=== PATIENT | female | born 1950 | race Two or more races ===

== ENCOUNTER 2017-09-29 16:08 | Inpatient (IN) | payer OTHER, MEDICARE ==
[~2017-09-29] VITALS: Ht 160 cm; Wt 89.8 kg
--- NOTE | 2017-09-29 16:30 | NUR ---
AAOX3, PATIENT CAME FROM HOME C/O COUGH WITH CONGESTION AND FEVER SINCE YESTERDAY. RR IS EVEN AND UNLABORED WITH NAD NOTED. PLACED ON MONITOR. AWAITING MD FOR EVAL.
[2017-09-29] MEDS ORDERED: ACETAMINOPHEN ES 500 MG TABLET ONE (16:54)
[2017-09-29 16:58] LABS: BASOPHILS # (AUTO) 0.1 /CMM (0.0-0.2); BASOPHILS % (AUTO) 1.8 % (0.0-2.0); EOSINOPHILS % (AUTO) 0.5 % (0.0-6.0); HEMATOCRIT 35 % (33-45); HEMOGLOBIN 12.1 g/dL (11.5-14.8); LYMPHOCYTES # (AUTO) 1.5 /CMM (0.8-4.8); LYMPHOCYTES % (AUTO) 25.9 % (20.0-44.0); MEAN CORPUSCULAR HGB CONC 34 g/dl (31.0-36.0); MEAN CORPUSCULAR VOLUME 88 fL (82-100); MONOCYTES # (AUTO) 0.5 /CMM (0.1-1.30); MONOCYTES % (AUTO) 8.5 % (2.0-12.0); NEUTROPHILS # (AUTO) 3.6 /CMM (1.8-8.9); NEUTROPHILS % (AUTO) 63.3 % (43.0-81.0); PLATELET COUNT (AUTO) 211 /CMM (150-450); RED BLOOD CELL COUNT(AUTO) 3.99 MIL/uL (4.0-5.2); WHITE BLOOD COUNT (AUTO) 5.7 K/uL (4.3-11.0)
--- NOTE | 2017-09-29 16:58 | NUR ---
CXR AT BS
[2017-09-29] MEDS ORDERED: PIPERACILLIN /TAZOBACTAM 3.375 G in IV D5W 50 ML IV ONE (17:00)
[2017-09-29] MEDS ORDERED: ACETAMINOPHEN ES 500 MG TABLET PO ONE (17:00)
[2017-09-29 17:11] LABS: CALCIUM, SERUM 8.3 mg/dL (8.5-10.1); CARBON DIOXIDE 32 mmol/L (21-32); CHLORIDE 101 mmol/L (98-107); CREATININE 0.7 mg/dL (0.6-1.3); GLUCOSE 167 mg/dL (74-106); POTASSIUM 3.3 mmol/L (3.5-5.1); SODIUM SERUM 137 mmol/L (136-145); UREA NITROGEN, BLOOD 11 mg/dL (7-18)
[2017-09-29 17:18] LABS: TROPONIN I < 0.017 ng/mL (0.00-0.056)
[2017-09-29 17:19] LABS: INR 0.99 (0.85-1.15)
[2017-09-29 17:23] LABS: APPEARANCE,URINE Clear (CLEAR); BILIRUBIN,URINE Negative (NEGATIVE); BLOOD, URINE Moderate Ery/uL (NEGATIVE); COLOR,URINE Yellow (YELLOW); KETONES,URINE Negative (NEGATIVE); LEUKOCYTE ESTERASE ,URINE Trace (NEGATIVE); NITRITE, URINE Negative (NEGATIVE); PROTEIN,URINE 30 mg/dl (NEGATIVE); UGLUCOSE Negative (NEGATIVE); UROBILINOGEN,URINE 0.2 EU/dL (0.2)
[2017-09-29 17:24] LABS: ALANINE AMINOTRANSFERASE 29 U/L (12-78); ALBUMIN 2.5 g/dL (3.4-5.0); ALKALINE PHOSPHATASE 64 U/L (46-116); ASPARTATE AMINOTRANSFERASE 28 U/L (15-37); B-TYPE NATRIURETIC PEPTIDE 369 PG/ML (0-125); BILIRUBIN,DIRECT 0.1 mg/dL (0.0-0.2); BILIRUBIN,TOTAL 0.3 mg/dL (0.2-1.0); TOTAL PROTEIN, SERUM 7.5 g/dL (6.4-8.2)
[2017-09-29] MEDS ORDERED: LEVOFLOXACIN 750 MG /D5W 150ML 150 ML IV ONE ×2 (17:30→17:51)
[2017-09-29 17:39] LABS: BACTERIA,URINE Few /HPF (None Seen); SQUAMOUS EPITHELIAL CELL,UR Few /HPF (None Seen)
--- NOTE | 2017-09-29 17:48 | NUR ---
CALLED NURSING SUP. FOR TELE BED
[2017-09-29] MEDS ORDERED: DONE5TAB34 PO (17:54)
[2017-09-29] MEDS ORDERED: CITA10TA9 PO (17:54)
[2017-09-29] MEDS ORDERED: LEVO75TA7 PO (17:54)
[2017-09-29] MEDS ORDERED: AMLO5TAB7 PO (17:54)
[2017-09-29] MEDS ORDERED: VALS160T29 PO (17:54)
[2017-09-29] MEDS ORDERED: MONT10TA22 PO (17:54)
[2017-09-29] MEDS ORDERED: CELE-85 PO (17:54)
[2017-09-29] MEDS ORDERED: METF-440 PO (17:54)
[2017-09-29] MEDS ORDERED: ASPI-1152 PO (17:54)
[2017-09-29] MEDS ORDERED: ESOM40CA52 PO (17:54)
[2017-09-29] MEDS ORDERED: CHOL100044 PO (17:54)
[2017-09-29] MEDS ORDERED: ATOR10TA PO (17:54)
--- NOTE | 2017-09-29 17:57 | NUR ---
TELE 307-2
--- NOTE | 2017-09-29 18:06 | NUR ---
REPORT GIVEN TO AMAYA STONE FOR DOUGLAS TELE 307-2
[2017-09-29] MEDS ORDERED: INSULIN REGULAR, HUMAN 100 UNIT/ML 3 ML VIAL SQ PRN (19:00)
[2017-09-29] MEDS ORDERED: POTASSIUM CHLORIDE 20 MEQ TAB.PRT.SR PO ONE (19:00)
[2017-09-29] MEDS ORDERED: DEXTROSE 50%-WATER 50 ML DISP.SYRIN IV PRN (19:00)
--- NOTE | 2017-09-29 19:30 | NUR ---
ADMISSION NOTES: RECEIVED REPORT FROM BERTHA CONDE. PT IN BED, AWAKE, A/O X4, ON RA RESPIRATION EVEN AND UNLABORED, PT IS [place] SPEAKING ONLY, RN BERTHA TRANSLATE EVERYTHING FOR THE PT, PT ADMITTED FOR UTI PNA, PT IV ACCESS NOTED TO BE INFILTRATED, IV ATB LEVOFLOXACIN, WILL INSERT A NEW ONE. ORIENTED PT TO UNIT POLICY AND HOURLY ROUNDING. ADMISSION ASSESSMENT/INTERVIEW DONE WITH BERTHA CONDE AT BED SIDE FOR TRANSLATE. PT ALSO REFUSING FOR INSULIN SHE STATED IN [place] THAT SHE DOESNT NEED IT AND ONLY TAKES METFORMIN IN THE MORNING, EDUCATION PROVIDED TO THE PT. SKIN ASSESSMENT PERFORMED, NO SACRAL REDNESS NOTED, PT IS AMBULATORY AND LIVES ALONE. TELE MONITORING ON, ON SINUS RHYTHM HR 72, DENIES ANY PAIN AT THIS TIME. SAFETY PRECAUTIONS FOR FALL INITIATED CALL LIGHT IN REACH, WILL CONTINUA TO MONITOR
--- NOTE | 2017-09-29 19:40 | NUR ---
SKIN ASSESSMENT: SKIN ASSESSMENT PERFORMED, NO SACRAL REDNESS NOTED, HOWEVER THERE IS SEEMINGLY "GENERALIZED PRURITUS WITH SCABS ALL OVER THE BODY MAINLY ON BILATERAL LEGS AND ARMS, TOOK PICTURES AND ATTACHED TO CHART, ID AND WOUND CONSULT WILL BE OBTAIN
[2017-09-29 20:00] VITALS: BP 135/85
--- NOTE | 2017-09-29 20:00 | NUR ---
RN NOTES: STARTED NEW IV ACCESS ON LEFT HAND G 22, CONNECTED BACK TO IV LEVOFLOXACIN. ALSO CHECKED PT'S BLOOD SUGAR 176, REFUSING FOR INSULIN EDUCATION PROVIDED TO THE PT, PT'S BROTHER AT BED SIDE. SNACK PROVIDED TO THE PT.
--- NOTE | 2017-09-29 20:30 | NUR ---
REFUSAL FOR OXYGEN: PT REFUSING OXYGEN NOT COMFORTABLE WITH IT, 925 on ra
[2017-09-29] MEDS: BLOOD SUGAR DIAGNOSTIC 1 EACH STRIP VI SCH (20:31)
[2017-09-29] MEDS: ALBUTEROL FS 2.5 MG/3 ML VIAL.NEB NEB PRN (20:56)
[2017-09-29] MEDS: CEFTRIAXONE 1 G in IV D5W 50 ML IV SCH (21:10)
[2017-09-29 21:15] VITALS: BP 140/75
[2017-09-29] MEDS: AZITHROMYCIN 500 MG in IV D5W 250 ML IV SCH (22:13)
[2017-09-30] VITALS (7 sets, daily range): BP systolic 110–153; BP diastolic 62–85
--- NOTE | 2017-09-30 01:51 | NUR ---
RN NOTES: PT C/O GENERALIZED ITCHING ALSO STATED HER CHEST IS ITCHING FROM LEADS FROM TELE MONITORING, PT REMOVED TELE BOX AND LEADS, RELAYED TO MANAGER FRENCH, PT REQUESTING FOR BENADRYL, CONTACTED PSYCHIATRIC SURGICAL GARMENT FITTER, STATED OKAY TO GIVE BENADRYL 25MG PO CAP Q6HRS PRN, ALSO NOTIFIED OF PT'S REFUSAL FOR HEART MONITORING
--- NOTE | 2017-09-30 01:55 | NUR ---
REFUSAL FOR HEART/TELE MONITORING: MD MADE AWARE OF PT'S REFUSAL FOR TELE MONITORING, ALSO DOLL SURGEON MADE AWARE, PER DOLL SURGEON TO KEEP TELE ON STANDBY
[2017-09-30] MEDS: diphenhydrAMINE HCL 25 MG CAPSULE PO PRN ×3 (02:13→21:32)
--- NOTE | 2017-09-30 02:13 | NUR ---
PRN BENADRYL: PT C/O GENERALIZED ITCHING, PRN BENADRYL 25MG CAP ADMINISTERED AT THIS TIME
[2017-09-30] MEDS: BLOOD SUGAR DIAGNOSTIC 1 EACH STRIP VI SCH ×4 (06:24→21:31)
[2017-09-30] MEDS: *INSULIN REGULAR(HUMULIN R)HUM 100 UNIT/ML VIAL SQ PRN ×2 (06:25→21:44)
--- NOTE | 2017-09-30 06:25 | NUR ---
ACCUCHECK 148: BLOOD SUGAR 148, PT REFUSED INSULIN, EDUCATION PROVIDED TO THE PT.
--- NOTE | 2017-09-30 06:51 | NUR ---
RN CLOSING NOTES: PT IN BED, AWAKE, REMAINS ON RA PT REFUSING FOR OXYGEN, STABLE ON RA, IV ACCESS REMAINS PATENT AND FLUSHING WELL, ON HL. VS REMAINS STABLE THROUGHOUT THE SHIFT, PT REMAINS TO REFUSED FOR TELE MONITORING. EDUCATION PROVIDED TO THE PT, MD AWARE, STAIN REMOVER AWARE. FOR WOUND CARE CONSULT TODAY. VS REMAINS STABLE, NEEDS ATTENDED. SAFETY PRECAUTIONS FOR FALL REMAINS ENGAGED, CALL LIGHT IN REACH, WILL ENDORSE TO DAY RN FOR DOUGLAS.
--- NOTE | 2017-09-30 07:10 | NUR ---
MSRN OPENING NOTES. PT RECEIVED A&0X3, BELARUSIAN SPEAKING, WORLD RENOWNED CHEF AND RESTAURANT OWNER FOR TRANSLATION. PT TOLERATING ROOM AIR WITHOUT SOB OR RESP DISTRESS. LUNGS AUSCULTATED WITH SOME MINOR RHONCHI. PT DENIES PAIN. PT WITH IVC AT L HAND G#22 INTACT AND SALINE FLUSH PATENT, PT ENDORSED TELE PT BUT REFUSING TELE MONITOR R/T IRRITATION AND ITCHINESS FROM TELE MONITORING PATCHES. PT BED IN LOWEST LOCKED POSITION WITH HANDRAILSX2 AND CALL PATTEN WITHIN REACH. PT BRIEFED ON TODAY'S POC AND IS WITHOUT CONCERN OR COMPLAINT AT THIS TIME.
[2017-09-30] MEDS ORDERED: Medication Not On Formulary EA (Esomeprazole Magnesium 40 MG) PO SCH (07:30)
[2017-09-30] MEDS: AMLODIPINE BESYLATE 5 MG TABLET PO SCH (08:21)
[2017-09-30] MEDS: DONEPEZIL 5 MG TABLET PO SCH (08:21)
[2017-09-30] MEDS: ASPIRIN EC 81 MG TABLET.DR PO SCH (08:21)
[2017-09-30] MEDS: VALSARTAN 80 MG TABLET PO SCH (08:22)
[2017-09-30] MEDS: LEVOTHYROXINE SODIUM 75 MCG TABLET PO SCH (08:22)
[2017-09-30] MEDS: CELECOXIB 100 MG CAPSULE PO SCH (08:22)
[2017-09-30] MEDS: CHOLECALCIFEROL 1,000 UNIT TABLET (VIT D3) PO SCH (08:23)
[2017-09-30] MEDS: CITALOPRAM HYDROBROMIDE 10 MG TABLET PO SCH (08:26)
[2017-09-30] MEDS ORDERED: ACETAMINOPHEN 650 MG/20.3 ML UDC NG PRN (08:30)
--- NOTE | 2017-09-30 09:00 | NUR ---
MSRN NOTES. PT REPORTING ITCHING, PRN BENADRYL ADMINISTERED WITH GOOD EFFECT. TYLENOL REQUESTED FROM MD R/T PT TEMP.
--- NOTE | 2017-09-30 11:00 | NUR ---
MSRN NOTES. PRN TYLENOL ADMINISTERED WITH GOOD EFFECT. PT NORMOTHERMIC AT THIS TIME.
[2017-09-30] MEDS: LACTOBACILLUS RHAMNOSUS GG 1 EACH CAP.SPRINK PO SCH (17:14)
[2017-09-30] MEDS ORDERED: MONTELUKAST SODIUM (10MG) 10 MG TABLET PO SCH (18:00)
[2017-09-30] MEDS ORDERED: LEVOFLOXACIN 500 MG /D5W 100ML 500 MG in PREMIX 1 EA IV SCH (18:00)
[2017-09-30] MEDS ORDERED: ATORVASTATIN 10 MG TABLET PO SCH (18:00)
--- NOTE | 2017-09-30 18:24 | NUR ---
MSRN CLOSING NOTES. PT A&0X3, LITHUANIAN SPEAKING, FIRE COORDINATOR USED FOR TRANSLATIONS. PT TOLERATING ROOM AIR AND DENIES PAIN, PT NORMOTHERMIC. PT IVC AT L HAND G#22 INTACT AND SL, PT BED IN LOWEST LOCKED POSITION WITH HANDRAILSX2 AND CALL PATTEN WITHIN REACH. ALL DAY NURSE DUTIES ATTENDED TO AND PT IS WITHOUT CONCERN OR COMPLAINT AT THIS TIME. WILL ENDORSE TO NIGHT NURSE AT BEDSIDE FOR DOUGLAS.
--- NOTE | 2017-09-30 19:35 | NUR ---
MS RN INITIAL NOTE PT IS IN BED BED AWAKE AND ALERT. CHINESE SPEAKING, GRANITE POLISHER FOR TRANSLATION. PT IS IN BED BREATHING EVENLY AND UNLABORED ON RA. NO SIGNS OF SOB OR DISTRESS. BRYSON PAIN OR ITCHINESS AT THIS TIME. IV ACCESS IS INTACT AND PATENT. BED IS IN LOW AND LOCKED POSITION, CALL LIGHT WITHIN REACH. WILL CONTINUE TO MONITOR PT
[2017-09-30] MEDS: CEFTRIAXONE 1 G in IV D5W 50 ML IV SCH (20:02)
[2017-09-30] MEDS: AZITHROMYCIN 500 MG in IV D5W 250 ML IV SCH (20:12)
--- NOTE | 2017-09-30 20:15 | NUR ---
MS RN NOTE PT IS SATING AT 91%. WICKER MOLDED CANDLES TO TRANSLATE THE NEED FOR OXYGEN. PT IS REFUSING THE OXYGEN, WILL KEEP IT ON ONLY A COUPLE MINUTES AT A TIME. WILL CONTINUE TO MONITOR PT
[2017-09-30] MEDS: ALBUTEROL FS 2.5 MG/3 ML VIAL.NEB NEB PRN (20:26)
[2017-10-01] MEDS ORDERED: ZOLPIDEM TARTRATE 5 MG TABLET PO PRN (01:00)
[2017-10-01] MEDS: BLOOD SUGAR DIAGNOSTIC 1 EACH STRIP VI SCH ×2 (05:47→11:48)
--- NOTE | 2017-10-01 06:20 | NUR ---
MS RN CLOSING NOTE PT IS IN BED SLEEPING, EASILY AROUSED. WAS ABLE TO SLEEP COMFORTABLY WITH THE HELP OF A SLEEPING AID. NO SIGNS OF SOB OR DISTRESS, BREATHING EVENLY AND UNLABORED ON RA. DENIES PAIN AT THIS TIME. IV ACCESS IS INTACT AND PATENT. BED IS IN LOW AND LOCKED POSITION, CALL LIGHT WITHIN REACH. WILL ENDORSE TO DAYSHIFT
--- NOTE | 2017-10-01 07:36 | NUR ---
MS/RN OPENING NOTE PATIENT IN BED AWAKE. ALERT AND ORIENTED X4. UPON ASSESSMENT NOTED BILATERAL LUNG WHEEZING. DENIES SOB. RESPIRATION REGULAR AND UNLABORED. DENIES PAIN. ACTIVE BOWEL SOUNDS IN ALL 4 QUADS. ABDOMEN SOFT AND NON-DISTENDED. PATIENT AMBULATES WITH STAND BY ASSIST. LEFT HAND G 22 PATENT AND SALINE LOCKED. BED LOW AND LOCKED. SIDE RAILS UP X2. CALL LIGHT WITHIN REACH. WILL CONTINUE TO MONITOR.
[2017-10-01 08:00] VITALS: BP 137/63
[2017-10-01] MEDS: LEVOTHYROXINE SODIUM 75 MCG TABLET PO SCH (08:15)
[2017-10-01] MEDS: CELECOXIB 100 MG CAPSULE PO SCH (08:15)
[2017-10-01] MEDS: LACTOBACILLUS RHAMNOSUS GG 1 EACH CAP.SPRINK PO SCH (08:15)
[2017-10-01] MEDS: DONEPEZIL 5 MG TABLET PO SCH (08:15)
[2017-10-01] MEDS: ASPIRIN EC 81 MG TABLET.DR PO SCH (08:15)
[2017-10-01 08:16] VITALS: BP 137/63
[2017-10-01] MEDS: AMLODIPINE BESYLATE 5 MG TABLET PO SCH (08:16)
[2017-10-01] MEDS: VALSARTAN 80 MG TABLET PO SCH (08:16)
[2017-10-01] MEDS: CHOLECALCIFEROL 1,000 UNIT TABLET (VIT D3) PO SCH (08:16)
[2017-10-01] MEDS: CITALOPRAM HYDROBROMIDE 10 MG TABLET PO SCH (08:18)
[2017-10-01 10:22] LABS: BASOPHILS % (AUTO) 0.8 % (0.0-2.0); EOSINOPHILS % (AUTO) 0.2 % (0.0-6.0); HEMATOCRIT 38 % (33-45); HEMOGLOBIN 12.6 g/dL (11.5-14.8); LYMPHOCYTES # (AUTO) 1.7 /CMM (0.8-4.8); MEAN CORPUSCULAR HGB CONC 33 g/dl (31.0-36.0); MEAN CORPUSCULAR VOLUME 88 fL (82-100); MONOCYTES # (AUTO) 0.3 /CMM (0.1-1.30); MONOCYTES % (AUTO) 5.8 % (2.0-12.0); NEUTROPHILS # (AUTO) 3.7 /CMM (1.8-8.9); NEUTROPHILS % (AUTO) 64.2 % (43.0-81.0); PLATELET COUNT (AUTO) 212 /CMM (150-450); RDW COEFFICIENT OF VARIATION 14.3 (11.5-15.0); WHITE BLOOD COUNT (AUTO) 5.8 K/uL (4.3-11.0)
--- NOTE | 2017-10-01 10:39 | NUR ---
WOUND CARE CONSULT: PT SEEN FOR MULTIPLE TINY DOTS/SCABS TO ARMS AND LEGS. PT SCRATCHES HER SKIN AND STATES HAD SOME KIND OF ALLERGY BEFORE ADMISSION AND HAS BEEN HAVING ALLERGY TESTING. BRUISING TO RT FOREARM AND HAND NOTED. DEFER TO MD FOR SCRATCHING. PT IS AMBULATORY AND CONTINENT. CURRENT ROSA SCORE IS 21. WILL SEE PRN. MD IN AGREEMENT WITH PLAN OF CARE. Addendum: 10/01/17 at 1041 by ARIANNE PARDO WNDNU Amended: Links added.
[2017-10-01 10:45] LABS: ALBUMIN 2.3 g/dL (3.4-5.0); BILIRUBIN,TOTAL 0.2 mg/dL (0.2-1.0); POTASSIUM 3.4 mmol/L (3.5-5.1); TOTAL PROTEIN, SERUM 7.7 g/dL (6.4-8.2)
[2017-10-01 11:05] LABS: CREATININE 0.9 mg/dL (0.6-1.3)
--- NOTE | 2017-10-01 11:15 | NUR ---
MS/RN NOTE PATIENT`S OXYGEN SATURATION IN ROOM AIR FLUCTUATES 89-90% BUT THE PATIENT REFUSES TO HAVE OXYGEN. RISKS AND BENEFITS ARE EXPLAINED MULTIPLE TIMES BUT THE PATIENT CONTINUES TO REFUSE. PATIENT`S RESPIRATION REGULAR AND UNLABORED. DENIES SOB. PATIENT WITH NO S/S RESPIRATORY DISTRESS. PATIENT IN NO APPARENT DISTRESS AND PATIENT IS IN STABLE CONDITION.
[2017-10-01] MEDS ORDERED: POTASSIUM CHLORIDE 20 MEQ TAB.PRT.SR PO SCH (11:30)
--- NOTE | 2017-10-01 11:48 | NUR ---
MS/RN NOTE BLOOD SUGAR 147. PATIENT REFUSED INSULIN DESPITE EXPLAINING RISKS AND BENEFITS MULTIPLE TIMES.
--- NOTE | 2017-10-01 14:12 | NUR ---
MS/RN CLOSING NOTE PATIENT ALERT AND ORIENTED X4. DENIES SOB. RESPIRATION REGULAR AND UNLABORED. DENIES PAIN. PATIENT IN NO APPARENT DISTRESS. PATIENT IN STABLE CONDITION. DISCHARGE INSTRUCTIONS PROVIDED AND THE PATIENT VERBALIZED UNDERSTANDING. MD PRESCRIPTION FORM HAND TO THE PATIENT WITH THE REST OF DISCHARGE PAPER AND THE COPIES ARE SAVE IN THE CHART. PATIENT WAS PICKED UP BY THE BROTHER. PATIENT LEFT THE HOSPITAL IN STABLE CONDITION.
[2017-10-01] MEDS ORDERED: LACTOBACILLUS RHAMNOSUS GG 1 EACH CAP.SPRINK PO SCH (17:00)
== END 2017-10-01 14:15 | disposition home or self-care (01) | DRG 139 ==
LOC: ER 16:12 → EDSEX 16:12 → EDBD 16:12 → ER 18:11 → TELE 18:16 → MED 09-30 08:21
PROVIDERS: ADMIT Internal Medicine; ATTEND Internal Medicine
DX: J15.9 Unspecified bacterial pneumonia (principal); J96.01 Acute respiratory failure with hypoxia; E43 Unspecified severe protein-calorie malnutrition; G92 Toxic encephalopathy; I10 Essential (primary) hypertension; E11.9 Type 2 diabetes mellitus without complications; J45.909 Unspecified asthma, uncomplicated; Z79.82 Long term (current) use of aspirin; Z79.84 Long term (current) use of oral hypoglycemic drugs; Z79.899 Other long term (current) drug therapy; M19.90 Unspecified osteoarthritis, unspecified site; N39.0 Urinary tract infection, site not specified; E03.9 Hypothyroidism, unspecified; E78.5 Hyperlipidemia, unspecified; F03.90 Unspecified dementia, unspecified severity, without behavioral disturbance, psychotic disturbance, mood disturbance, and anxiety; F32.9 Major depressive disorder, single episode, unspecified; F41.9 Anxiety disorder, unspecified; R21 Rash and other nonspecific skin eruption
CPT/HCPCS: 36415; 71045-TC; 80048-TC; 80053-TC; 80076-TC; 81000-TC; 82962-TC; 83605-TC; 83880; 84484-TC; 85025-TC; 85730-TC; 87040-TC; 87081-TC; 87086-TC; A4606; J0456; J0696; J1815; J1956; J2543; J7060; Q0163; Z7610

== ENCOUNTER 2017-11-15 15:16 | Emergency (ER) | payer MEDICARE, OTHER ==
[~2017-11-15] VITALS: Ht 162.6 cm; Wt 68.0 kg
[~2017-11-15 15:16] MED LIST: AMLO5TAB2 PO; ASPI-1152 PO; ATOR10TA PO; CELE-85 PO; CHOL100044 PO; CITA10TA9 PO; DONE5TAB34 PO; ESOM40CA52 PO; LEVO75TA7 PO; METF500T6 PO; MONT10TA22 PO; VALS160T28 PO
--- NOTE | 2017-11-15 15:30 | NUR ---
SEEN BY FOR EVAL. PT WITH C/O HEMORRHOIDS. NAD NOTED. VSS. SAFETY AND COMFORT MEASURES PROVIDED. WILL MONITOR.
[2017-11-15] MEDS ORDERED: LIDOCAINE 1%-EPI 1:100,000 50 ML VIAL IJ ONE (17:00)
[2017-11-15] MEDS ORDERED: HYDROCODONE/APAP 5/325MG 1 EACH TABLET PO ONE (17:00)
[2017-11-15 17:11] LABS: BASOPHILS # (AUTO) 0.1 /CMM (0.0-0.2); BASOPHILS % (AUTO) 0.5 % (0.0-2.0); EOSINOPHILS % (AUTO) 2.2 % (0.0-6.0); HEMATOCRIT 37 % (33-45); HEMOGLOBIN 12.3 g/dL (11.5-14.8); LYMPHOCYTES # (AUTO) 2.1 /CMM (0.8-4.8); LYMPHOCYTES % (AUTO) 18.3 % (20.0-44.0); MEAN CORPUSCULAR HEMOGLOBIN 30 PG (26.0-33.0); MEAN CORPUSCULAR HGB CONC 34 g/dl (31.0-36.0); MEAN CORPUSCULAR VOLUME 89 fL (82-100); MONOCYTES # (AUTO) 0.6 /CMM (0.1-1.30); MONOCYTES % (AUTO) 5.2 % (2.0-12.0); NEUTROPHILS # (AUTO) 8.6 /CMM (1.8-8.9); NEUTROPHILS % (AUTO) 73.8 % (43.0-81.0); PLATELET COUNT (AUTO) 375 /CMM (150-450); RED BLOOD CELL COUNT(AUTO) 4.12 MIL/uL (4.0-5.2); WHITE BLOOD COUNT (AUTO) 11.7 K/uL (4.3-11.0)
[2017-11-15] MEDS ORDERED: HYDROCODONE/APAP 5/325MG 1 EACH TABLET ONE (17:22)
[2017-11-15 17:25] LABS: INR 0.95 (0.85-1.15)
--- NOTE | 2017-11-15 17:30 | NUR ---
IV ACCESS STARTED. WAITING FOR CT.
[2017-11-15 17:36] LABS: CALCIUM, SERUM 9.1 mg/dL (8.5-10.1); CREATININE 0.8 mg/dL (0.6-1.3); POTASSIUM 3.7 mmol/L (3.5-5.1)
[2017-11-15 17:39] LABS: ALBUMIN 2.3 g/dL (3.4-5.0); BILIRUBIN,TOTAL 0.3 mg/dL (0.2-1.0); TOTAL PROTEIN, SERUM 7.9 g/dL (6.4-8.2)
[2017-11-15] MEDS ORDERED: CT SWABBABLE VALVE TRANS SET 1 EA INFUS.SET MC ONE (18:16)
[2017-11-15] MEDS ORDERED: IOHEXOL-300 100 ML VIAL IV ONE (18:16)
[2017-11-15] MEDS ORDERED: IV NS 0.9% 500 ML IV ONE (18:16)
[2017-11-15] MEDS ORDERED: CLINDAMYCIN 900 MG in IV D5W 100 ML IV ONE (19:30)
[2017-11-15] MEDS ORDERED: LIDOCAINE 0.5%-EPI 1:200,000 50 ML VIAL ONE (19:48)
--- NOTE | 2017-11-15 20:00 | NUR ---
AT FOR WOUND PROCEDURE.
--- NOTE | 2017-11-15 21:50 | NUR ---
IV removed. Catheter intact and site benign. Pressure and 4x4 applied to site. No bleeding noted.
--- NOTE | 2017-11-15 21:54 | NUR ---
Patient discharged to home in stable condition. Written and verbal after care instructions given. Patient verbalizes understanding of instruction.
[2017-11-15 21:56] VITALS: BP 141/74
== END 2017-11-15 21:57 | disposition home or self-care (01) ==
LOC: ER 15:19
DX: K61.0 Anal abscess (principal); I10 Essential (primary) hypertension; E11.9 Type 2 diabetes mellitus without complications; Z79.82 Long term (current) use of aspirin; K64.8 Other hemorrhoids; K80.80 Other cholelithiasis without obstruction; Z79.899 Other long term (current) drug therapy
CPT/HCPCS: 36415; 72193-TC; 80053-TC; 85025-TC; 85730-TC; A4606; J3490; J7040; J7060; Q9967; Z7610